=== PATIENT | male | born 1985 | race Caucasian/White ===

== ENCOUNTER 2025-07-07 19:22 | Emergency (ER) | payer BC ==
[~2025-07-07] VITALS: Ht 165.1 cm; Wt 68.0 kg
[2025-07-07 19:24] VITALS: O2SAT 100
[2025-07-07] MEDS: METOCLOPRAMIDE HCL 10MG/2ML VIAL IM ONE (21:01)
[2025-07-07] MEDS: DIPHENHYDRAMINE 50MG/ML VIAL IM ONE (21:01)
[2025-07-07] MEDS ORDERED: NAPR-1176 MT (22:50)
[2025-07-07] MEDS ORDERED: LIDO-53 TP (22:50)
[2025-07-07] MEDS: KETOROLAC 15MG/ML VIAL IM ONE (22:56)
[2025-07-07 23:00] VITALS: BP 122/83; PULSE 74; RESP 13; TEMP 37.1; O2SAT 100
== END 2025-07-07 23:04 | disposition home or self-care (01) ==
LOC: ER 19:22
DX: S06.0XAA Concussion with loss of consciousness status unknown, initial encounter (principal); X58.XXXA Exposure to other specified factors, initial encounter; Y93.89 Activity, other specified; Y92.89 Other specified places as the place of occurrence of the external cause; Y99.8 Other external cause status
CPT/HCPCS: 70450; 96372; 99285; J1200; J1885; J2765; Z7610